=== PATIENT | female | born 1995 | race Caucasian/White ===

== ENCOUNTER 2023-06-01 11:17 | Outpatient (CLI) | payer BC, SELFPAY | END 2023-06-01 11:18 | disposition home or self-care (01) | LOC: ANHLAB 11:26 | PROVIDERS: PCP Nurse Practitioner; Visit Provider Obstetrics & Gynecology | DX: O20.0 Threatened abortion (principal); Z3A.00 Weeks of gestation of pregnancy not specified | CPT/HCPCS: 36415; 84702; 86850; 86900; 86901 ==

== ENCOUNTER 2023-12-19 10:27 | Observation (INO) | payer BC, SELFPAY ==
[2023-12-19] VITALS (7 sets, daily range): BP systolic 112–123; BP diastolic 67–74; PULSE 75–97; BMI 31.6
--- NOTE | 2023-12-19 10:57 | OBADM ---
This patient, Karishma Pisano, admitted to the OB room [facility] for observation. Patient/family oriented to hospital policies and general routines including ID bracelet, bed and alarms, visiting hours, pain management, procedures, bathroom and other care routines, personal items, smoking policy, room service/diet, and visiting hours. Patient/Family are encouraged to report perceived risks to care and to ask questions if they do not understand what they are told or what they should do.
[2023-12-19 11:23] LABS: Add Urine Microscopic? YES; Appearance Urine Clear (Clear); Bacteria Urine 1+ /hpf; Bilirubin Urine Negative (Negative); Blood Urine Negative (Negative); Color Urine Yellow (Yellow); Glucose Urine UA Negative (Negative); Ketones Urine Negative (Negative); Leukocyte Esterase Ur 3+ LEU/UL (Negative); Need Manual Microscopic Reviewed; Nitrate Urine Negative (Negative); Protein Urine Negative (Negative); RBC Urine 0-2 /hpf (0-2); Specific Grav Ur 1.005 (1.001-1.035); Squamous Epithelial Cell Urine Few /hpf (Few); Urobilinogen Urine 0.2 mg/dL (<2.0); WBC Urine 21-50 /hpf (0-3)
[2023-12-19] MEDS: NIFEdipine 10 MG CAPSULE PO (11:52)
--- NOTE | 2023-12-19 12:57 | WPDOBADMIT ---
Obstetrics - Admit Note Admission Note: 28 y/o G1 at 35 weeks here with occasional contractions. No leakage of fluid. No bleeding. No urinary symptoms. AVSS NST reactive TOCO: irregular contractions ABD soft, nontender, gravid, vertex EXT nontender Cervix FT/50 per RN UA unremarkable A: IUP at 35 weeks with contractions, irregular. P: Reviewed labor precautions. Home to f/u in 2 days as scheduled.
--- NOTE | 2023-12-21 08:29 | PM.OBTRLD ---
OB - Triage/Final Diagnosis Visit Information Comments/Additional reasons for admission: I have assessed the risk for this patient, Karishma Pisano, and determined that she would benefit from observation care. Evaluation Laboratory results: Laboratory Tests 12/19/23 10:51 Urine Color Yellow Urine Appearance Clear Urine pH 7.0 Ur Specific [place] 1.005 Urine Protein Negative Urine Glucose (UA) Negative Urine Ketones Negative Ur Blood (Man) Negative Urine Nitrate Negative Urine Bilirubin Negative Urine Urobilinogen 0.2 Add Ur Microanalysis Reviewed Leukocyte Esterase Rfl 3+ H Urine RBC 0-2 Urine WBC 21-50 H Ur Squamous Epith Cells Few Urine Bacteria 1+ H Urine Casts 6-10 Final Diagnosis (1) False labor: Code(s): O47.9 - False labor, unspecified Status: Acute
== END 2023-12-19 13:12 | disposition home or self-care (01) ==
PROVIDERS: Admitting Provider Obstetrics & Gynecology; PCP Nurse Practitioner; Visit Provider Obstetrics & Gynecology
DX: O47.03 False labor before 37 completed weeks of gestation, third trimester (principal); Z3A.35 35 weeks gestation of pregnancy
CPT/HCPCS: 81001; 87086; A9270; G0378; G0379

== ENCOUNTER 2024-01-06 18:28 | Observation (INO) | payer BC, SELFPAY ==
[2024-01-06 18:28] VITALS: BMI 32.3
--- NOTE | 2024-01-06 21:30 | OBADM ---
This patient, Karishma Pisano, admitted to the OB room Labor/Delivery/Recovery 107 for observation. Patient/family oriented to hospital policies and general routines including ID bracelet, bed and alarms, visiting hours, pain management, procedures, bathroom and other care routines, personal items, smoking policy, room service/diet, and visiting hours. Patient/Family are encouraged to report perceived risks to care and to ask questions if they do not understand what they are told or what they should do.
--- NOTE | 2024-01-11 13:30 | PM.OBTRLD ---
OB - Triage/Final Diagnosis Visit Information Comments/Additional reasons for admission: I have assessed the risk for this patient, Karishma Pisano, and determined that she would benefit from observation care. Final Diagnosis (1) False labor: Code(s): O47.9 - False labor, unspecified Status: Acute
== END 2024-01-06 21:40 | disposition home or self-care (01) ==
PROVIDERS: Admitting Provider Obstetrics & Gynecology; PCP Nurse Practitioner; Visit Provider Obstetrics & Gynecology
DX: O47.1 False labor at or after 37 completed weeks of gestation (principal); Z3A.37 37 weeks gestation of pregnancy
CPT/HCPCS: G0378; G0379

== ENCOUNTER 2024-01-07 14:37 | Inpatient (IN) | payer BC, SELFPAY ==
[2024-01-07] VITALS (158 sets, daily range): BP systolic 78–149; BP diastolic 49–90; PULSE 51–104; RESP 16–18; TEMP 36.6–37.1; O2SAT 86–100; BMI 33.1
[2024-01-07] MEDS: LACTATED RINGERS 1,000 ML 125 ML IV CONT ×2 (15:10→16:17)
[2024-01-07 15:18] LABS: Basophils Percent Auto 0.2 % (0.2-1.2); Eosinophils Absolute Auto 0.2 K/mm3 (0-0.3); Eosinophils Percent Auto 1.3 % (0-4.4); Hematocrit 34.1 % (37.0-47.0); Hemoglobin 11.5 g/dL (12.0-15.0); Immature Granulocyte Percent A 0.8 % (0-0.5); Lymphocytes Absolute Auto 1.59 K/mm3 (0.9-3.2); Mean Corpuscular HGB Conc 33.7 g/dl (32-36); Mean Corpuscular Hemoglobin 30.3 pg (26-34); Mean Corpuscular Volume 89.7 fl (80-100); Mean Platelet Volume 11.8 fl (7.4-10.4); Monocytes Absolute Auto 0.8 K/mm3 (0.1-0.6); Monocytes Percent Auto 6.9 % (2.6-8.5); Neutrophils Absolute Auto 9.5 K/mm3 (1.3-6.7); Neutrophils Percent Auto 77.8 % (45.5-73.1); Platelet Count Result 193 k/mm3 (150-375); Red Cell Distribution Width 13.2 % (11.5-14.5); White Blood Count 12.2 K/mm3 (4.5-10.0)
[2024-01-07] MEDS: fentaNYL CITRATE INJ (*CRX) 100 MCG/2 ML VIAL 50 MCG IV PUSH (15:26)
--- NOTE | 2024-01-07 15:27 | LDADM ---
This patient, Karishma Pisano, was admitted to Labor/Delivery/Recovery 105 on 01/07/24 at 14:37. Plans for labor, pain management and were discussed with patient. Patient/family oriented to hospital policies and general routines including ID bracelet, bed and alarms, visiting hours, pain management, procedures, bathroom and other care routines, personal items, smoking policy, room service/diet and guest tray routines, security routines, and visiting hours. Patient/Family are encouraged to report perceived risks to care and to ask questions if they do not understand what they are told or what they should do. See OBIX for further documentation.
--- NOTE | 2024-01-07 15:37 | WPDANESEPP ---
Anes - Eval Pre Procedure Procedure: Labor epidural Date/Time: 01/07/24 15:37 Surgeon: Ramses Preop Diagnosis: Pain during labor Pre Op Diagnosis: Labor Patient Data Age: 28 Gender: F Height: 1.52 m Weight: 77 kg Last Vital Signs Pulse 75 01/07/24 15:30 BP 139/74 01/07/24 15:30 Pulse Ox 100 01/07/24 15:34 O2 Del Method Room Air 01/07/24 15:24 Allergies Allergy/AdvReac Type Severity Reaction Status Date / Time No Known Allergies Allergy Verified 12/31/23 12:29 Home Medications Medication Instructions Recorded Confirmed Type fluoxetine 20 mg tablet 20 mg PO DAILY 12/31/23 12/31/23 History mesalamine 1.2 gram tablet,delayed 1.2 g PO DAILY 12/31/23 12/31/23 History release vits no.126-ferrous fum 1 tablet PO DAILY 12/31/23 12/31/23 History 28 mg iron-folic acid 800 mcg tablet (Classic ) Laboratory Tests 01/07/24 15:10 WBC 12.2 H K/mm3 (4.5-10.0) RBC 3.80 L M/mm3 (4.2-5.4) Hgb 11.5 L g/dL (12.0-15.0) Hct 34.1 L % (37.0-47.0) MCV 89.7 fl (80-100) MCH 30.3 pg (26-34) MCHC 33.7 g/dl (32-36) RDW 13.2 % (11.5-14.5) Plt Count 193 k/mm3 (150-375) MPV 11.8 H fl (7.4-10.4) Immature Gran % (Auto) 0.8 H % (0-0.5) Neut % (Auto) 77.8 H % (45.5-73.1) Lymph % (Auto) 13.0 L % (18.3-44.2) [place] % (Auto) 6.9 % (2.6-8.5) Eos % (Auto) 1.3 % (0-4.4) Baso % (Auto) 0.2 % (0.2-1.2) Lymph # (Auto) 1.59 K/mm3 (0.9-3.2) [place] # (Auto) 0.8 H K/mm3 (0.1-0.6) Eos # (Auto) 0.2 K/mm3 (0-0.3) Baso # (Auto) 0.0 K/mm3 (0.0-0.1) Abs Immat Gran (auto) 0.10 H K/mm3 (0.00-0.031) Absolute Neuts (auto) 9.5 H K/mm3 (1.3-6.7) Absolute Nucleated RBC 0.000 K/mm3 (0.0-0.012) Nucleated RBC % 0.0 % (0.0-0.2) RPR Pending HIV 1&2 Ab/P24 Ag 4thGn Pending Patient hx anesthesia problems: none Family hx anesthesia problems: none Results Review: All pre-operative results and documents have been reviewed as part of the pre-operative evaluation. [facility] Family History Family History Mother Pulmonary embolism Hyperlipidemia Father Hyperlipidemia Heart disease Social History Social History Smoking status: Never smoker Substance use: never Do You Feel Safe in your Home?: Yes Lack of Transportation: No Lack of Food: Never True Current Housing: I Have Housing Concerned About Future Housing: No Difficulty Paying Gas/Electric Bills: No Difficulty Paying for Meds: No Currently Unemployed: No Education: Bachelor's Degree Difficulty w/ Childcare or Family Care: No Spiritual care concerns: No Exam Day of Procedure 01/07/24 15:37 Patient weight: obese Heart: regular rate and rhythm Lungs: clear to auscultation and normal air movement Airway: Mallampati scale class II Neurological: alert and oriented
[2024-01-07 16:00] LABS: Rapid Plasma Reagin Non-Reactive (NonReactive)
[2024-01-07 16:14] LABS: HIV 1/2 Ab P24 Ag Result Negative (Negative)
[2024-01-08] VITALS (105 sets, daily range): BP systolic 108–141; BP diastolic 57–84; PULSE 65–127; RESP 14–16; TEMP 36.1–37; O2SAT 79–100
[2024-01-08] MEDS: LACTATED RINGERS 1,000 ML 125 ML IV CONT (00:01)
[2024-01-08] MEDS: OXYTOCIN 30 UNITS/NS 500 ML 30 UNITS/500 ML BAG IV CONT (01:54)
--- NOTE | 2024-01-08 04:23 | PM.IMHP ---
H&P: HPI History of Present Illness Date/Time: 01/08/24 04:23 Chief Complaint: Lester perez Narrative: 28 y/o G1 at 37 6/7 weeks here after a gush of clear fluid. SROM confirmed on L&D. Spontaneous contractions noted, and she received an epidural for pain control. GBS neg. Labor currently being augmented with oxytocin. She feels a lot of pressure. Review of Systems Review of Systems: All systems reviewed & are unremarkable except as noted in HPI and below PMFSH Past Medical History Medical History Depression with anxiety Factor 5 Leiden mutation, heterozygous Hyperlipidemia Salmonella infection Ulcerative colitis Family History Family History Mother Pulmonary embolism Hyperlipidemia Father Hyperlipidemia Heart disease Social History Social History Smoking status: Never smoker Substance use: never Do You Feel Safe in your Home?: Yes Lack of Transportation: No Lack of Food: Never True Current Housing: I Have Housing Concerned About Future Housing: No Difficulty Paying Gas/Electric Bills: No Difficulty Paying for Meds: No Currently Unemployed: No Education: Bachelor's Degree Difficulty w/ Childcare or Family Care: No Spiritual care concerns: No Meds Home Medications and Allergies Home Medications Medication Instructions Recorded Confirmed Type fluoxetine 20 mg tablet 20 mg PO DAILY 12/31/23 12/31/23 History mesalamine 1.2 gram tablet,delayed 1.2 g PO DAILY 12/31/23 12/31/23 History release vits no.126-ferrous fum 1 tablet PO DAILY 12/31/23 12/31/23 History 28 mg iron-folic acid 800 mcg tablet (Classic ) Allergies Allergy/AdvReac Type Severity Reaction Status Date / Time No Known Allergies Allergy Verified 12/31/23 12:29 Vital Signs Vital Signs - 24 hr 01/07/24 15:14 01/07/24 15:19 01/07/24 15:23 Temperature Pulse Rate Respiratory Rate Blood Pressure Pulse Oximetry 100 100 99 Oxygen Delivery 01/07/24 15:28 01/07/24 15:30 01/07/24 15:32 Temperature Pulse Rate 75 Respiratory Rate Blood Pressure 139/74 Pulse Oximetry 100 100 Oxygen Delivery 01/07/24 15:34 01/07/24 15:39 01/07/24 15:39 Temperature Pulse Rate Respiratory Rate Blood Pressure Pulse Oximetry 100 100 99 Oxygen Delivery 01/07/24 15:40 01/07/24 15:40 01/07/24 15:40 Temperature Pulse Rate Respiratory Rate Blood Pressure Pulse Oximetry 100 100 100 Oxygen Delivery 01/07/24 15:41 01/07/24 15:42 01/07/24 15:42 Temperature Pulse Rate Respiratory Rate Blood Pressure Pulse Oximetry 86 L 93 100 Oxygen Delivery 01/07/24 15:44 01/07/24 15:49 01/07/24 15:50 Temperature Pulse Rate Respiratory Rate Blood Pressure Pulse Oximetry 92 100 100 Oxygen Delivery 01/07/24 15:51 01/07/24 15:56 01/07/24 15:59 Temperature Pulse Rate 79 Respiratory Rate Blood Pressure 149/67 H Pulse Oximetry 98 100 Oxygen Delivery 01/07/24 16:01 01/07/24 16:06 01/07/24 16:07 Temperature Pulse Rate 88 73 Respiratory Rate Blood Pressure 133/82 130/73 Pulse Oximetry 100 100 Oxygen Delivery 01/07/24 16:09 01/07/24 16:10 01/07/24 16:11 Temperature Pulse Rate 73 72 Respiratory Rate Blood Pressure 134/63 129/69 Pulse Oximetry 100 Oxygen Delivery 01/07/24 16:12 01/07/24 16:15 01/07/24 16:16 Temperature Pulse Rate 72 79 Respiratory Rate Blood Pressure 133/67 133/69 Pulse Oximetry 100 Oxygen Delivery 01/07/24 16:17 01/07/24 16:20 01/07/24 16:21 Temperature Pulse Rate 69 74 Respiratory Rate Blood Pressure 130/68 126/69 Pulse Oximetry 100 Oxygen Delivery 01/07/24 16:22 01/07/24 16:25 01/07/24 16:26 Temperature Pulse Rate 67 77 Respiratory Rate Blood Pressure 134/70 129/75 Pulse Oximetry 100 Oxygen Delivery 01/07/24 16:27 01/07/24 16:30 01/07/24 16:31 Temperature 37.1 C Pulse Rate 72 71 Respiratory Rate 16 Blood Pressure 135/73 133/70 Pulse Oximetry 100 Oxygen Delivery 01/07/24 16:32 01/07/24 16:36 01/07/24 16:41 Temperature Pulse Rate 71 Respiratory Rate Blood Pressure 137/73 Pulse Oximetry 100 99 Oxygen Delivery 01/07/24 16:45 01/07/24 16:46 01/07/24 16:51 Temperature Pulse Rate 70 Respiratory Rate Blood Pressure 137/73 Pulse Oximetry 99 99 Oxygen Delivery 01/07/24 16:56 01/07/24 17:00 01/07/24 17:01 Temperature 36.6 C Pulse Rate 72 Respiratory Rate 18 Blood Pressure 133/71 Pulse Oximetry 97 97 Oxygen Delivery 01/07/24 17:06 01/07/24 17:11 01/07/24 17:16 Temperature Pulse Rate Respiratory Rate Blood Pressure Pulse Oximetry 100 99 100 Oxygen Delivery 01/07/24 17:21 01/07/24 17:26 01/07/24 17:30 Temperature Pulse Rate 82 Respiratory Rate Blood Pressure 114/89 Pulse Oximetry 100 100 Oxygen Delivery 01/07/24 17:31 01/07/24 17:36 01/07/24 17:41 Temperature Pulse Rate Respiratory Rate Blood Pressure Pulse Oximetry 100 100 100 Oxygen Delivery 01/07/24 17:41 01/07/24 17:45 01/07/24 17:46 Temperature Pulse Rate 71 Respiratory Rate Blood Pressure 128/80 Pulse Oximetry 100 100 Oxygen Delivery 01/07/24 17:51 01/07/24 17:56 01/07/24 17:59 Temperature Pulse Rate Respiratory Rate Blood Pressure Pulse Oximetry 100 100 100 Oxygen Delivery 01/07/24 18:00 01/07/24 18:04 01/07/24 18:09 Temperature 36.8 C Pulse Rate 83 Respiratory Rate Blood Pressure 125/49 L Pulse Oximetry 100 100 Oxygen Delivery 01/07/24 18:14 01/07/24 18:15 01/07/24 18:19 Temperature Pulse Rate 82 Respiratory Rate Blood Pressure 116/62 Pulse Oximetry 100 100 Oxygen Delivery 01/07/24 18:24 01/07/24 18:29 01/07/24 18:30 Temperature Pulse Rate 87 Respiratory Rate Blood Pressure 98/58 L Pulse Oximetry 100 100 Oxygen Delivery 01/07/24 18:34 01/07/24 18:39 01/07/24 18:44 Temperature Pulse Rate Respiratory Rate Blood Pressure Pulse Oximetry 100 100 100 Oxygen Delivery 01/07/24 18:45 01/07/24 18:49 01/07/24 18:54 Temperature Pulse Rate 74 Respiratory Rate Blood Pressure 120/71 Pulse Oximetry 100 100 Oxygen Delivery 01/07/24 18:56 01/07/24 18:59 01/07/24 19:00 Temperature Pulse Rate 78 Respiratory Rate Blood Pressure 127/72 Pulse Oximetry 99 100 Oxygen Delivery 01/07/24 19:04 01/07/24 19:08 01/07/24 19:13 Temperature Pulse Rate Respiratory Rate Blood Pressure Pulse Oximetry 100 100 100 Oxygen Delivery 01/07/24 19:14 01/07/24 19:15 01/07/24 19:16 Temperature Pulse Rate 78 Respiratory Rate Blood Pressure 123/74 Pulse Oximetry 100 100 Oxygen Delivery 01/07/24 19:21 01/07/24 19:26 01/07/24 19:30 Temperature Pulse Rate 70 Respiratory Rate Blood Pressure 125/71 Pulse Oximetry 100 100 Oxygen Delivery 01/07/24 19:31 01/07/24 19:36 01/07/24 19:41 Temperature Pulse Rate Respiratory Rate Blood Pressure Pulse Oximetry 99 99 99 Oxygen Delivery 01/07/24 19:45 01/07/24 19:46 01/07/24 19:51 Temperature Pulse Rate 82 Respiratory Rate Blood Pressure 136/80 Pulse Oximetry 100 100 Oxygen Delivery 01/07/24 19:56 01/07/24 20:01 01/07/24 20:03 Temperature Pulse Rate 87 Respiratory Rate Blood Pressure 78/62 L Pulse Oximetry 100 99 100 Oxygen Delivery 01/07/24 20:08 01/07/24 20:13 01/07/24 20:15 Temperature Pulse Rate 81 Respiratory Rate Blood Pressure 103/66 Pulse Oximetry 100 100 Oxygen Delivery 01/07/24 20:18 01/07/24 20:23 01/07/24 20:28 Temperature Pulse Rate Respiratory Rate Blood Pressure Pulse Oximetry 100 100 99 Oxygen Delivery 01/07/24 20:30 01/07/24 20:33 01/07/24 20:38 Temperature Pulse Rate 85 Respiratory Rate Blood Pressure 112/70 Pulse Oximetry 100 99 Oxygen Delivery 01/07/24 20:43 01/07/24 20:45 01/07/24 20:48 Temperature Pulse Rate 80 Respiratory Rate Blood Pressure 109/61 Pulse Oximetry 99 98 Oxygen Delivery 01/07/24 20:53 01/07/24 20:57 01/07/24 21:00 Temperature Pulse Rate 79 Respiratory Rate Blood Pressure 127/69 Pulse Oximetry 99 100 Oxygen Delivery 01/07/24 20:00 01/07/24 21:02 01/07/24 21:07 Temperature 37.1 C Pulse Rate Respiratory Rate Blood Pressure Pulse Oximetry 99 98 Oxygen Delivery 01/07/24 21:12 01/07/24 21:15 01/07/24 21:17 Temperature Pulse Rate 79 Respiratory Rate Blood Pressure 128/71 Pulse Oximetry 98 98 Oxygen Delivery 01/07/24 21:22 01/07/24 21:27 01/07/24 21:30 Temperature Pulse Rate 81 Respiratory Rate Blood Pressure 127/70 Pulse Oximetry 97 98 Oxygen Delivery 01/07/24 21:32 01/07/24 21:37 01/07/24 21:42 Temperature Pulse Rate Respiratory Rate Blood Pressure Pulse Oximetry 98 97 98 Oxygen Delivery 01/07/24 21:45 01/07/24 21:47 01/07/24 21:51 Temperature Pulse Rate 81 Respiratory Rate Blood Pressure 129/66 Pulse Oximetry 97 98 Oxygen Delivery 01/07/24 21:53 01/07/24 21:58 01/07/24 21:59 Temperature 36.9 C Pulse Rate Respiratory Rate Blood Pressure Pulse Oximetry 98 99 Oxygen Delivery 01/07/24 22:00 01/07/24 22:03 01/07/24 22:08 Temperature Pulse Rate 88 Respiratory Rate Blood Pressure 105/53 L Pulse Oximetry 97 99 Oxygen Delivery 01/07/24 22:13 01/07/24 22:18 01/07/24 22:23 Temperature Pulse Rate Respiratory Rate Blood Pressure Pulse Oximetry 99 98 98 Oxygen Delivery 01/07/24 22:28 01/07/24 22:30 01/07/24 22:33 Temperature Pulse Rate 83 Respiratory Rate Blood Pressure 117/59 L Pulse Oximetry 99 99 Oxygen Delivery 01/07/24 22:38 01/07/24 22:38 01/07/24 22:43 Temperature Pulse Rate Respiratory Rate Blood Pressure Pulse Oximetry 99 98 99 Oxygen Delivery 01/07/24 22:45 01/07/24 22:48 01/07/24 22:53 Temperature Pulse Rate 83 Respiratory Rate Blood Pressure 115/57 L Pulse Oximetry 98 97 Oxygen Delivery 01/07/24 22:58 01/07/24 23:00 01/07/24 23:03 Temperature Pulse Rate 83 Respiratory Rate Blood Pressure 107/57 L Pulse Oximetry 98 100 Oxygen Delivery 01/07/24 23:08 01/07/24 23:13 01/07/24 23:15 Temperature Pulse Rate 84 Respiratory Rate Blood Pressure 126/86 Pulse Oximetry 98 99 Oxygen Delivery 01/07/24 23:18 01/07/24 23:23 01/07/24 23:28 Temperature Pulse Rate Respiratory Rate Blood Pressure Pulse Oximetry 98 99 99 Oxygen Delivery 01/07/24 23:30 01/07/24 23:33 01/07/24 23:38 Temperature Pulse Rate 94 Respiratory Rate Blood Pressure 139/90 Pulse Oximetry 98 98 Oxygen Delivery 01/07/24 23:42 01/07/24 23:45 01/07/24 23:47 Temperature Pulse Rate 92 Respiratory Rate Blood Pressure 117/69 Pulse Oximetry 94 97 Oxygen Delivery 01/07/24 23:52 01/07/24 23:57 01/08/24 00:00 Temperature Pulse Rate 103 H Respiratory Rate Blood Pressure 117/71 Pulse Oximetry 96 96 Oxygen Delivery 01/08/24 00:02 01/08/24 00:04 01/08/24 00:07 Temperature 36.8 C Pulse Rate Respiratory Rate Blood Pressure Pulse Oximetry 99 96 Oxygen Delivery 01/08/24 00:12 01/08/24 00:15 01/08/24 00:17 Temperature Pulse Rate 82 Respiratory Rate Blood Pressure 125/67 Pulse Oximetry 95 95 Oxygen Delivery 01/08/24 00:22 01/08/24 00:27 01/08/24 00:30 Temperature Pulse Rate 81 Respiratory Rate Blood Pressure 128/70 Pulse Oximetry 95 95 Oxygen Delivery 01/08/24 00:32 01/08/24 00:37 01/08/24 00:42 Temperature Pulse Rate Respiratory Rate Blood Pressure Pulse Oximetry 94 95 97 Oxygen Delivery 01/08/24 00:45 01/08/24 00:47 01/08/24 00:52 Temperature Pulse Rate 85 Respiratory Rate Blood Pressure 127/69 Pulse Oximetry 98 98 Oxygen Delivery 01/08/24 00:57 01/08/24 01:00 01/08/24 01:02 Temperature Pulse Rate 88 Respiratory Rate Blood Pressure 109/58 L Pulse Oximetry 96 97 Oxygen Delivery 01/08/24 01:07 01/08/24 01:12 01/08/24 01:15 Temperature Pulse Rate 96 Respiratory Rate Blood Pressure 117/57 L Pulse Oximetry 100 99 Oxygen Delivery 01/08/24 01:17 01/08/24 01:22 01/08/24 01:27 Temperature Pulse Rate Respiratory Rate Blood Pressure Pulse Oximetry 98 100 99 Oxygen Delivery 01/08/24 01:30 01/08/24 01:32 01/08/24 01:37 Temperature Pulse Rate 88 Respiratory Rate Blood Pressure 120/66 Pulse Oximetry 98 98 Oxygen Delivery 01/08/24 01:42 01/08/24 01:45 01/08/24 01:47 Temperature Pulse Rate 80 Respiratory Rate Blood Pressure 120/67 Pulse Oximetry 94 96 Oxygen Delivery 01/08/24 01:52 01/08/24 01:53 01/08/24 01:58 Temperature Pulse Rate Respiratory Rate Blood Pressure Pulse Oximetry 98 99 100 Oxygen Delivery 01/08/24 02:00 01/08/24 02:03 01/08/24 02:08 Temperature Pulse Rate 86 Respiratory Rate Blood Pressure 131/74 Pulse Oximetry 100 100 Oxygen Delivery 01/08/24 02:13 01/08/24 02:15 01/08/24 02:18 Temperature Pulse Rate 93 Respiratory Rate Blood Pressure 131/74 Pulse Oximetry 100 100 Oxygen Delivery 01/08/24 02:22 01/08/24 02:27 01/08/24 02:28 Temperature Pulse Rate Respiratory Rate Blood Pressure Pulse Oximetry 100 100 100 Oxygen Delivery 01/08/24 02:30 01/08/24 02:33 01/08/24 02:38 Temperature Pulse Rate 102 H Respiratory Rate Blood Pressure 121/67 Pulse Oximetry 100 100 Oxygen Delivery 01/08/24 02:39 01/08/24 02:43 01/08/24 02:45 Temperature Pulse Rate 89 Respiratory Rate Blood Pressure 141/84 H Pulse Oximetry 100 97 Oxygen Delivery 01/08/24 02:47 01/08/24 02:52 01/08/24 02:54 Temperature Pulse Rate Respiratory Rate Blood Pressure Pulse Oximetry 98 100 97 Oxygen Delivery 01/08/24 02:54 01/08/24 02:59 01/08/24 03:00 Temperature Pulse Rate 89 Respiratory Rate Blood Pressure 127/78 Pulse Oximetry 98 100 Oxygen Delivery 01/08/24 03:04 01/08/24 03:09 01/08/24 03:14 Temperature Pulse Rate Respiratory Rate Blood Pressure Pulse Oximetry 100 100 99 Oxygen Delivery 01/08/24 03:15 01/08/24 03:17 01/08/24 03:20 Temperature Pulse Rate 98 Respiratory Rate Blood Pressure 132/84 Pulse Oximetry 99 100 Oxygen Delivery 01/08/24 03:25 01/08/24 03:25 01/08/24 03:30 Temperature Pulse Rate 80 Respiratory Rate Blood Pressure 116/66 Pulse Oximetry 98 99 99 Oxygen Delivery 01/08/24 03:35 01/08/24 03:40 01/08/24 03:42 Temperature Pulse Rate Respiratory Rate Blood Pressure Pulse Oximetry 100 100 99 Oxygen Delivery 01/08/24 03:45 01/08/24 03:47 01/08/24 03:49 Temperature Pulse Rate 82 Respiratory Rate Blood Pressure 108/59 L Pulse Oximetry 100 99 Oxygen Delivery 01/08/24 03:54 01/08/24 03:55 01/08/24 03:58 Temperature Pulse Rate Respiratory Rate Blood Pressure Pulse Oximetry 99 100 100 Oxygen Delivery 01/08/24 04:00 01/08/24 04:03 01/08/24 04:06 Temperature Pulse Rate 96 Respiratory Rate Blood Pressure 124/75 Pulse Oximetry 100 100 Oxygen Delivery 01/08/24 04:09 01/08/24 04:14 01/08/24 04:15 Temperature Pulse Rate 93 Respiratory Rate Blood Pressure 109/61 Pulse Oximetry 98 100 Oxygen Delivery 01/08/24 04:19 01/08/24 04:20 01/07/24 15:24 Temperature Pulse Rate Respiratory Rate Blood Pressure Pulse Oximetry 100 100 Oxygen Delivery Room Air 01/07/24 16:16 Temperature Pulse Rate 79 Respiratory Rate Blood Pressure 133/69 Pulse Oximetry Oxygen Delivery Exam Const: Orientation/consciousness: patient oriented x3 Other: Well-developed, well-nourished female in no acute distress. Neck: Thyroid: thyroid normal Lymphatic: no lymphadenopathy noted (in neck, axilla or inguinal nodes) Resp: Effort & Inspection: normal respiratory effort Auscultation: clear to auscultation bilaterally Cardio: Rate: regular rate Rhythm: regular rhythm Heart sounds: S1 normal heart sound present and S2 normal heart sound present GI: Other: ABD: Soft, nontender, nondistended, gravid. NST reactive. TOCO: contractions every 2-3 min. No guarding or rebound tenderness. No hepatosplenomegaly. : General: Yes no CVA tenderness Other: Cervix: thin rim of cervix that reduces with pushing. OP position noted. Back/Spine/Pelvis: Back: no CVA tenderness Skin: General skin exam: normal color and no rashes or lesions noted Neuro: General: patient oriented x3 Extrem: Other: Extremities: nontender with no edema Psych: Mental Status: mental status grossly normal Affect: normal affect H&P: Results Labs Labs: Short CBC 01/07/24 Range/Units 15:10 WBC 12.2 H (4.5-10.0) K/mm3 Hgb 11.5 L (12.0-15.0) g/dL Hct 34.1 L (37.0-47.0) % Plt Count 193 (150-375) k/mm3 Assessment and Plan Assessment and plan (1) Term : Code(s): Z34.90 - Encounter for supervision of normal , unspecified, unspecified trimester Status: Acute Assessment and Plan: A: IUP at 37 6/7 weeks with SROM. P: Begin pushing. Anticipate . (2) SROM (spontaneous rupture of membranes): Status: Acute
[2024-01-08] MEDS: LIDOCAINE HCL 1% LOCAL INJ 20 ML VIAL (07:28)
--- NOTE | 2024-01-08 07:55 | PM.OBPRVD ---
OB - Vaginal Delivery Note Procedure Delivery date: 01/08/24 Events: Other (SROM at 37 6/7 weeks) Intrapartal Events: Arrest of Descent and Ineffetive Pushing/Maternal Exhaustion Induction method: None Delivery augmentation: Pitocin Delivery monitor: External FHT, External Uterine and Internal Uterine Route of delivery: vacuum extraction Indication for instrumentation: maternal exhaustion Episiotomy description: Midline Delivery repair: vicryl (3-0) Specimen: Yes (cord blood) Quantitative Blood Loss (ml): 450 Anesthesia type: Epidural Disposition: PACU Complications: None Narrative: 28 y/o G1 at 37 6/7 weeks gestation who presented to the hospital after a gush of clear fluid at home at 1400 on 01/06. SROM was diagnosed. She received an epidural for pain control. Labor was subsequently augmented with oxytocin. Her labor progressed and her cervix dilated completely. She pushed with good effort for 2.5 hours, bringing the vertex to the +2/3 position, in ROP position. Her pushes became ineffective and vacuum assisted delivery was offered. We reviewed risks, benefits and alternatives in detail. She agreed. The [place] vacuum was applied to the vertex using the Dreifingergriff. The head was gently flexed. A midline episiotomy was made. Over 5 contractions, with two pop-offs, the 's head was delivered to the perineum, followed by the body. The cord was clamped and cut and the the nose and mouth were bulb suctioned. The infant was handed off the field. Cord blood was collected. The placenta delivered spontaneously and was grossly normal in appearance. The usual 3 vessel cord was noted. The MLE was noted to be free of extension. This was reapproximated using 3 0 Vicryl in the usual layered fashion. Excellent hemostasis resulted as did excellent reapproximation of the normal anatomy. Needle and instrument counts were correct. The patient was taken to recovery room in stable condition. The went to the nursery. I was present and scrubbed for the entire delivery. Baby Date of : 01/08/24 Time of : 07:19 Gestational Age by Date: 37 gender: Male Weight (pounds): 8 Weight (ounces): 2 presentation: vertex position: Right Occiput Posterior Placenta delivery description: Spontaneous and Normal Configuration Cord Vessel Description: 3 Vessels and Delayed Cord Clamping
[2024-01-08] MEDS: OXYTOCIN 30 UNITS/NS 500 ML 30 UNITS/500 ML BAG 125 UNITS IV CONT (07:57)
--- NOTE | 2024-01-08 08:04 | P.DS_ITS ---
DS: Admitting Diagnosis Discharge Date 01/09/24 Admitting Diagnosis IUP at 37 6/7 weeks SROM DS: Discharge Diagnosis Discharge Diagnosis (1) Term delivered: Code(s): O80 - Encounter for full-term uncomplicated delivery Status: Acute OB - DS: Summary OB Procedures : NST OB Procedures Intrapartum: Vacuum extraction OB Procedures: : None Peripartum Data Episiotomy description: Midline Time Spent with Patient Time attestation: Total time spent providing and/or coordinating discharge services: DS: Data Data Completed and Pending Labs on day of discharge: Labs from last 24 hours 01/07/24 15:10 WBC 12.2 H RBC 3.80 L Hgb 11.5 L Hct 34.1 L MCV 89.7 MCH 30.3 MCHC 33.7 RDW 13.2 Plt Count 193 MPV 11.8 H Immature Gran % (Auto) 0.8 H Neut % (Auto) 77.8 H Lymph % (Auto) 13.0 L [place] % (Auto) 6.9 Eos % (Auto) 1.3 Baso % (Auto) 0.2 Lymph # (Auto) 1.59 [place] # (Auto) 0.8 H Eos # (Auto) 0.2 Baso # (Auto) 0.0 Abs Immat Gran (auto) 0.10 H Absolute Neuts (auto) 9.5 H Absolute Nucleated RBC 0.000 Nucleated RBC % 0.0 RPR Non-reactive HIV 1&2 Ab/P24 Ag 4thGn Negative Blood Type O Positive Antibody Screen Negative Discharge Plan Discharge Attending physician on discharge: Dave Pearce Discharging Clinician: Dave Pearce Patient Disposition: Home, Self-Care Activity: pelvic rest Diet: regular Discharge Instructions: Call or return if temperature above 100.4? F, increased abdominal pain, increased vaginal bleeding or any new problems. Stand Alone Forms: General Discharge Information Follow-up/Referrals: Dave Pearce MD [Physician] - 6 Weeks Discharge Medications: New ibuprofen 600 mg tablet 600 mg PO Q6H PRN (Reason: cramps) Qty: 30 0RF ferrous sulfate 325 mg (65 mg iron) tablet 325 mg PO DAILY Qty: 30 0RF Continued fluoxetine 20 mg tablet 20 mg PO DAILY mesalamine 1.2 gram tablet,delayed release (DR/EC) 1.2 g PO DAILY Classic 28 mg iron- 800 mcg Tablet 1 tablet PO DAILY Date of admission: 01/07/24 14:37 Primary Care Provider: Debi,Maisha Briones Admitting Provider: Dave Pearce Attending physician on admission: Dave Pearce Condition: Stable
[2024-01-08] MEDS: COSYNTROPIN 0.25 MG/ML VIAL 1 MG IV PUSH (08:24)
--- NOTE | 2024-01-08 10:20 | PC.NURSE ---
Patient transferred to post room #281 via wheelchair. Support person present. Oriented to unit, room, information board, rooming in, admission packet and security measures. Patient verbalizes understanding.
[2024-01-08] MEDS: IBUPROFEN 600 MG TABLET PO ×2 (10:41→20:20)
[2024-01-08] MEDS: DOCUSATE SODIUM 100 MG CAPSULE PO (10:41)
[2024-01-08] MEDS: ACETAMINOPHEN 325 MG TABLET 650 MG PO ×2 (15:53→23:41)
--- NOTE | 2024-01-08 20:18 | PC.NURSE ---
2015-pt returned from [facility], stable at time.
[2024-01-09] MEDS: IBUPROFEN 600 MG TABLET PO ×2 (02:11→08:37)
[2024-01-09 02:15] VITALS: BP 106/67; PULSE 81; RESP 16; TEMP 36.7
[2024-01-09 05:58] LABS: Hematocrit 24.7 % (37.0-47.0); Hemoglobin 8.3 g/dL (12.0-15.0)
[2024-01-09 07:45] VITALS: BP 110/73; PULSE 79; RESP 16; TEMP 37; O2SAT 100
--- NOTE | 2024-01-09 08:30 | PC.NURSE ---
0830 Breast pump was previously provided due to baby being transferred to [facility]. Instructions given on cleaning, care, usage, that there should be no pain, pumping schedule for milk production, collection, and storage of human milk. Patient was assessed for correct placement, flange size, to pump for comfort and nipple stretching/stimulation for adequate milk production every 3 hours (8 times in 24 hours) 1-2 times at night. Mother encouraged to record the pumping schedule on the feeding sheet.?Mother voiced understanding of the education shared along with mom/baby guide and the pump measurement, flange fit handout for additional resource information. Reported to the Primary RN.
[2024-01-09] MEDS: MULTIVIT/MIN/PREN/FOL AC/IRON TABLET 1 TAB PO (08:37)
[2024-01-09] MEDS: DOCUSATE SODIUM 100 MG CAPSULE PO (08:37)
[2024-01-09] MEDS: POLYSACCHARIDE IRON COMPLEX 150 MG CAPSULE PO (08:37)
[2024-01-09] MEDS: FLUoxetine HCL 20 MG CAPSULE PO (08:38)
--- NOTE | 2024-01-09 08:53 | PM.OBPNVD ---
OB - PN: Subj Subjective Date/time seen: 01/09/24 08:53 Narrative: Pain OK. Baby was transferred to [facility] and is reportedly doing well. She would like to be discharged. OB - PN: Obj Data Labs 01/09/24 05:11 Labs: Laboratory Results - last 24 hr 01/09/24 05:11 Hgb 8.3 L D Hct 24.7 L OB - PN A/P Plan day: 1 Comments: A: PPD#1, doing well. P: Home to f/u 6 weeks. Exam Psych: Other: AVSS ABD soft, nontender, fundus firm EXT nontender
== END 2024-01-09 10:30 | disposition home or self-care (01) | DRG 806 ==
LOC: ANHLDR 01-08 08:06 → ANHOB2 01-08 10:52
PROVIDERS: Admitting Provider Obstetrics & Gynecology; PCP Nurse Practitioner; Visit Provider Obstetrics & Gynecology
DX: O62.1 Secondary uterine inertia (principal); D68.51 Activated protein C resistance; Z37.0 Single live birth; O99.12 Other diseases of the blood and blood-forming organs and certain disorders involving the immune mechanism complicating childbirth; Z3A.37 37 weeks gestation of pregnancy; O70.1 Second degree perineal laceration during delivery; O99.344 Other mental disorders complicating childbirth; F32.A Depression, unspecified; F41.9 Anxiety disorder, unspecified
CPT/HCPCS: 36415; 85014; 85018; 85025; 86592; 86703; 86850; 86900; 86901; A9270; G0432; J0834; J2003; J2590; J2795; J3010; J7120

== ENCOUNTER 2024-01-10 15:26 | Outpatient (CLI) | payer BC, SELFPAY ==
[2024-01-10] VITALS (26 sets, daily range): BP systolic 104–122; BP diastolic 53–70; PULSE 28–92; O2SAT 92–100
--- NOTE | 2024-01-10 16:16 | WPDANESEBPP ---
Anes - Epidural Blood Patch PN Date/Time: 01/10/24 16:16 Consent: I have discussed with the patient/family/POA, the rationale of a lumbar epidural autologous blood patch for the treatment of post-dural puncture headache (spinal headache), including associated potential risks, benefits, complications and side effects. I have also discussed more conservative treatment options such as intravenous hydration, caffeine and non-prescription analgesics. The patient/family/POA, understand(s) and wish(es) to proceed with epidural autologous blood patch as treatment for the patient's post-dural puncture headache. Time-Out: A pre-procedural Time-Out was completed immediately before starting the procedure and confirmed: Patient Identification, Site, Procedure, Patient Position and the Availability of Requisite Equipment. Epidural Insertion Note Patient position: sitting Skin prep: chlorhexidine Needle: 18 gauge Tuohy-Schliff - 20 cc of blood obtained under sterile technique and injected slowly into epidural space at 1605 - 1607 without pain or complaints by patient. Technique: loss of resistance Skin anesthesia: lidocaine 1% Observations: tolerated well Complications: none
== END 2024-01-10 18:00 | disposition home or self-care (01) ==
LOC: ANHOBOP 15:31 → ANHOBPP 15:39
PROVIDERS: PCP Nurse Practitioner; Visit Provider Obstetrics & Gynecology
DX: G97.1 Other reaction to spinal and lumbar puncture (principal)
CPT/HCPCS: 62273; 99199